=== PATIENT | female | born 2005 | race Caucasian/White ===

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

== ENCOUNTER 2024-01-28 11:59 | Emergency (ER) | payer MEDICAID, OTHER ==
[~2024-01-28] VITALS: Ht 165.1 cm; Wt 83.0 kg
[2024-01-28 12:06] VITALS: O2SAT 100
[2024-01-28] MEDS: IBUPROFEN 600MG TABLET PO ONE (14:08)
[2024-01-28 14:11] VITALS: BP 104/58; PULSE 85; RESP 18; TEMP 36.66960; O2SAT 98
== END 2024-01-28 14:14 | disposition home or self-care (01) ==
LOC: ER 11:59
DX: M79.602 Pain in left arm (principal); M25.512 Pain in left shoulder; Z90.49 Acquired absence of other specified parts of digestive tract
CPT/HCPCS: 73030; 99283